=== PATIENT | female | born 1990 | race Caucasian/White ===

== ENCOUNTER 2023-01-29 22:15 | Emergency (ER) | payer OTHER, SELFPAY ==
[2023-01-29 22:38] LABS: Basophils % 0.2 %; Eosinophils # 0.2 10^3/uL (0.0-0.8); Eosinophils % 1.5 %; Hematocrit 39.5 % (37.0-47.0); Hemoglobin 13.2 g/dL (11.5-15.3); Lymphocytes # 4.6 10^3/uL (0.8-4.8); Lymphocytes % 41.4 %; Mean Corpuscular HGB Conc 33.4 g/dL (30.0-36.0); Mean Corpuscular Hemoglobin 29.9 pg (28.0-34.0); Mean Corpuscular Volume 89.6 fl (81-99); Mean Platelet Volume 9.9 fL (7.4-10.4); Monocytes # 0.6 10^3/uL (0.2-0.9); Monocytes % 5.8 %; Neutrophils # 5.61 10^3/uL (1.8-7.7); Neutrophils % 50.4 %; Nucleated Red Blood Cells % 0 %; Platelet Count 287 10^3/cmm (130-400); Red Blood Count 4.41 10^6/uL (4.1-5.3); Red Cell Distribution Width 12.7 % (12.1-15.1); White Blood Count 11.1 10^3/uL (4.0-10.0)
[2023-01-29 22:39] VITALS: BP 135/101; PULSE 91; RESP 16; TEMP 37; O2SAT 98; BMI 33.6
[2023-01-29 22:46] LABS: HCG, Serum Qual Positive (Negative)
[2023-01-29 22:52] LABS: Alanine Aminotransferase 12 U/L (0-33); Albumin Level 4.4 g/dL (3.5-5.2); Alkaline Phosphatase 90 U/L (35-105); Anion Gap 15.7 (5-19); Aspartate Amino Transferase 14 U/L (0-32); Blood Urea Nitrogen 10 mg/dL (6-20); Calcium 9.8 mg/dL (8.5-10.5); Carbon Dioxide 22 mmol/L (22-29); Chloride 102 mmol/L (98-107); Globulin 2.8 g/dL (1.3-4.6); Glomerular Filtration Rate 97.6 mL/min (90-130); Glucose 73 mg/dL (65-115); Lipase 14 U/L (13-60); Osmolality Calculated 280 mOsm/kg (285-295); Potassium 3.7 mmol/L (3.5-5.1); Sodium 136 mmol/L (136-145); Total Bilirubin 0.3 mg/dL (0.15-1.2); Total Protein 7.2 g/dL (6.6-8.7)
--- NOTE | 2023-01-29 22:55 | W.ED.PREGNAN ---
HPI - General: Chief complaint: Vaginal Bleeding Stated complaint: abd pain/bleeding Time Seen by Provider: 01/29/23 22:34 Source: patient Mode of arrival: ambulatory Limitations: no limitations History of Present Illness: 32-year-old female states she is currently 10 weeks . States that today she had some vaginal bleeding along with passing blood clots just prior to arrival she had some slight lower abdominal cramping. This is her first she denies any vomiting or diarrhea she is from [place] her OB is in [place]. Associated symptoms: Reports abdominal pain; Deny dysuria, headache(s), nausea or vomiting Review of Systems Const: Denies: fever(s) or chills ENMT: Denies: throat pain or dental pain Card: Denies: chest pain Resp: Denies: dyspnea GI: Reports: abdominal pain; Denies: nausea, vomiting or diarrhea : Reports: vaginal bleeding; Denies: dysuria Musc: Denies: neck pain or back pain Skin/Breast: Denies: rash Neuro: Denies: headache(s) Physical Exam Const: COMMON NORMALS: no acute distress, patient oriented x3 and healthy appearing HENMT: COMMON NORMALS: normocephalic and atraumatic HEAD & SCALP: normocephalic and atraumatic Eye: COMMON NORMALS: conjunctivae normal CONJUNCTIVA: Yes conjunctivae normal Neck/C-Spine: COMMON NORMALS: supple Chest: COMMONS NORMALS: normal inspection of the chest Resp: COMMON NORMALS: normal respiratory effort Cardio: COMMON NORMALS: regular rate, regular rhythm and No murmurs present (Cardio) RATE: regular rate RHYTHM: regular rhythm GI: COMMON NORMALS: Normal to inspection, nondistended, normoactive bowel sounds present, Soft to palpation, non-tender and no masses PALPATION: Yes Soft to palpation Extremity: COMMON NORMALS: normal to inspection and full ROM Neuro: COMMON NORMALS: patient oriented x3, moves all extremities and no focal motor deficits Psych: COMMON NORMALS: mental status grossly normal, Normal thought process present and cooperative THOUGHT PROCESS: Normal thought process present Skin: COMMON NORMALS: no rashes or lesions noted and no wounds GENERAL SKIN EXAM: no rashes or lesions noted Course Vital Signs: Vital signs: Vital Signs Temperature 98.6 F 01/29/23 22:39 Pulse Rate 92 01/30/23 00:10 Respiratory Rate 16 01/30/23 00:10 Blood Pressure 122/77 01/30/23 00:10 Pulse Oximetry 98 01/30/23 00:10 MDM - OB/Uterine Contractions Medical Decision Making Patient presents here with likely blighted ovum she had minimal bleeding here she is well-appearing here she stable for discharge she is follow-up with her OB and return if worsening. Medical Records I reviewed the patient's medical records. Lab Data I reviewed the patient's lab results. 01/29/23 22:35 01/29/23 22:35 Laboratory Results WBC 11.1 10^3/uL (4.0-10.0) H 01/29/23 22:35 RBC 4.41 10^6/uL (4.1-5.3) 01/29/23 22:35 Hgb 13.2 g/dL (11.5-15.3) 01/29/23 22:35 Hct 39.5 % (37.0-47.0) 01/29/23 22: MCV 89.6 fl (81-99) 01/29/23 22:35 MCH 29.9 pg (28.0-34.0) 01/29/23 22:35 MCHC 33.4 g/dL (30.0-36.0) 01/29/23 22:35 RDW 12.7 % (12.1-15.1) 01/29/23 22:35 Plt Count 287 10^3/cmm (130-400) 01/29/23 22:35 MPV 9.9 fL (7.4-10.4) 01/29/23 22:35 Neut % (Auto) 50.4 % 01/29/23 22:35 Lymph % (Auto) 41.4 % 01/29/23 22:35 [place] % (Auto) 5.8 % 01/29/23 22:35 Eos % (Auto) 1.5 % 01/29/23 22:35 Baso % (Auto) 0.2 % 01/29/23 22:35 Neut # (Auto) 5.61 10^3/uL (1.8-7.7) 01/29/23 22:35 Lymph # (Auto) 4.6 10^3/uL (0.8-4.8) 01/29/23 22:35 [place] # (Auto) 0.6 10^3/uL (0.2-0.9) 01/29/23 22:35 Eos # (Auto) 0.2 10^3/uL (0.0-0.8) 01/29/23 22:35 Baso # (Auto) 0.0 10^3/uL (0.0-0.1) 01/29/23 22:35 Nucleated RBC % (auto) 0 % 01/29/23 22:35 Nucleated RBCs # 0.0 /100WBC 01/29/23 22:35 Sodium 136 mmol/L (136-145) 01/29/23 22:35 Potassium 3.7 mmol/L (3.5-5.1) 01/29/23 22:35 Chloride 102 mmol/L (98-107) 01/29/23 22:35 Carbon Dioxide 22 mmol/L (22-29) 01/29/23 22:35 Anion Gap 15.7 (5-19) 01/29/23 22:35 BUN 10 mg/dL (6-20) 01/29/23 22:35 Creatinine 0.7 mg/dL (0.5-0.9) 01/29/23 22:35 GFR Calculation 97.6 mL/min (90-130) 01/29/23 22:35 Glucose 73 mg/dL (65-115) 01/29/23 22:35 Calculated Osmolality 280 mOsm/kg (285-295) L 01/29/23 22:35 Calcium 9.8 mg/dL (8.5-10.5) 01/29/23 22:35 Total Bilirubin 0.3 mg/dL (0.15-1.2) 01/29/23 22:35 AST 14 U/L (0-32) 01/29/23 22:35 ALT 12 U/L (0-33) 01/29/23 22:35 Alkaline Phosphatase 90 U/L (35-105) 01/29/23 22:35 Total Protein 7.2 g/dL (6.6-8.7) 01/29/23 22:35 Albumin 4.4 g/dL (3.5-5.2) 01/29/23 22:35 Globulin 2.8 g/dL (1.3-4.6) 01/29/23 22:35 Lipase 14 U/L (13-60) 01/29/23 22:35 HCG, Qual Positive (Negative) H 01/29/23 22:35 Ser , Semi-Qnt 3144.00 mIU/mL 01/29/23 22:35 Urine Color Colorless (Yellow) 01/29/23 22:40 Urine Appearance Clear (CLEAR) 01/29/23 22:40 Urine pH 7 (5-7) 01/29/23 22:40 Ur Specific [place] 1.005 (1.005-1.030) 01/29/23 22:40 Urine Protein Neg (Negative) 01/29/23 22:40 Urine Glucose (UA) Norm (Normal) 01/29/23 22:40 Urine Ketones Negative (Negative) 01/29/23 22:40 Urine Blood 3+ (Negative) H 01/29/23 22:40 Urine Nitrate Negative (Negative) 01/29/23 22:40 Urine Bilirubin Neg (Negative) 01/29/23 22:40 Urine Urobilinogen Norm mg/dL (Negative) 01/29/23 22:40 Ur Leukocyte Esterase Negative (Negative) 01/29/23 22:40 Urine RBC 15-25 /hpf (0-2) H 01/29/23 22:40 Urine WBC 0-4 /hpf (0-5) H 01/29/23 22:40 Ur Squamous Epith Cells 5-10 /hpf (0-5) H 01/29/23 22:40 Amorphous Sediment Not Reportable 01/29/23 22:40 Urine Bacteria 1+ /hpf (NONE) H 01/29/23 22:40 Blood Type A Positive 01/29/23 22:56 Rho(D) Type Positive 01/29/23 22:56 Antibody Screen Negative 01/29/23 22:56 Discharge Plan Discharge Patient Disposition: Home Clinical Impression: Threatened Condition: Stable Discharge Orders: Discharge ED (Routine); Ordered 01/30/23 Ordered By: Nanci Muñoz Discharge Diet: Advance as tolerated Discharge Activity: Resume usual activity Patient Instructions: Threatened Miscarriage (ED) Coding Level of Care Code ED Weather Forecaster for Shadi Ruiz
[2023-01-29 23:18] LABS: Add Urine Microscopic? YES; Bilirubin Urine Neg (Negative); Blood Urine 3+ (Negative); Glucose Urine UA Norm (Normal); Ketones Urine Negative (Negative); Leukocyte Esterase Urine Negative (Negative); Nitrate Urine Negative (Negative); Protein Urine Neg (Negative); Specific Gravity, Urine 1.005 (1.005-1.030); Urine Appearance Clear (CLEAR); Urine Color Colorless (Yellow); Urobilinogen Urine Norm (Negative); pH Urine 7 (5-7)
[2023-01-29 23:20] LABS: RBC Urine 15-25 /hpf (0-2)
[2023-01-29 23:21] LABS: Add Urine Culture? Yes; Bacteria Urine 1+ /hpf; WBC Urine 0-4 /hpf (0-5)
[2023-01-29 23:27] VITALS: BP 116/78; PULSE 97; RESP 16; O2SAT 98
[2023-01-30 00:10] VITALS: BP 122/77; PULSE 92; RESP 16; O2SAT 98
[2023-01-30 00:44] VITALS: BP 122/77; PULSE 92; RESP 16; TEMP 37; O2SAT 98
--- NOTE | 2023-01-30 23:27 | USR_ITS ---
PROCEDURE INFORMATION: Exam: US First Trimester, Transabdominal and US , Transvaginal Exam date and time: 01/30/2023 12:06 AM Age: 32 years old Clinical indication: Lmp or gestational age (in weeks): 10 w; Antepartum complications; Bleeding; ; Additional info: Threatened miscarriage TECHNIQUE: Imaging protocol: Real-time transabdominal obstetrical ultrasound of the maternal pelvis and a first trimester , less than 14 weeks 0 days, with image documentation. Transvaginal imaging was used for better evaluation of the fetus, adnexa, and/or cervix. COMPARISON: No relevant prior studies available. FINDINGS: Gestation: The gestational sac measures 3.53 cm, there is no embryo noted. Embryonic/ heart rate: There is no embryo noted. Extra-embryonic membranes/Placenta: There is no embryo noted. Amniotic fluid: There is no embryo or noted in the gestational sac. BIOMETRY: Gestational age (AUA): There is no free air noted in the gestational sac. MATERNAL: Uterus: Unremarkable. Cervix: Unremarkable. Right ovary/adnexa: The right ovary is not visualized. There is no right adnexal mass noted. Left ovary/adnexa: The left ovary measures 1.97 x 1.84 x 2.49 cm with a volume of 4.7 mL Intraperitoneal space: No intraperitoneal free fluid. US/US OB <=14 wk fetus w transvag IMPRESSION: Anembryonic with no embryo noted within the gestational sac (3.53 cm)
--- NOTE | 2023-02-02 09:45 | DCPLANNER ---
warehouse distribution manager was triggered to call patient due to no primary care physician - patient does not live in the area.
== END 2023-01-30 00:45 | disposition home or self-care (01) ==
PROVIDERS: Emergency Provider Emergency Medicine
DX: O20.0 Threatened abortion (principal); Z3A.10 10 weeks gestation of pregnancy
CPT/HCPCS: 36415; 76801; 76817; 80053; 81001; 83690; 84702; 84703; 85025; 86850; 86900; 87086; 99284